=== PATIENT | female | born 1965 | race Asian ===

== ENCOUNTER 2020-01-04 21:59 | Emergency (ER) | payer MEDICAID, OTHER ==
[~2020-01-04] VITALS: Ht 162.6 cm; Wt 85.0 kg
[~2020-01-04 21:59] MED LIST: etomidate 2mg/ml inj. ONE; rocuronium 10mg/ml inj IV ONE
--- NOTE | 2020-01-04 22:03 | NUR ---
Triage completed at 2203 late entry
[2020-01-04] MEDS ORDERED: normal saline 1000ML IV soln IVB ONE (22:15)
[2020-01-04] MEDS ORDERED: propofol 1000mg/100ml bottle 100 ML IV PRN (22:21)
[2020-01-04] MEDS ORDERED: propofol 10mg/ml 20ml vial IV ONE (22:25)
[2020-01-04 22:31] LABS: BASOPHILS # (AUTO) 0.1 X10'3 (0-0.2); BASOPHILS % (AUTO) 0.3 % (0-1); EOSINOPHILS # (AUTO) 0.1 X10'3 (0-0.9); EOSINOPHILS % (AUTO) 0.8 % (0-6); HEMATOCRIT 45.7 % (35.0-45.0); HEMOGLOBIN 14.9 g/dl (12.0-16.0); LYMPHOCYTES # (AUTO) 4.7 X10'3 (1.1-4.8); MEAN CORPUSCULAR HEMOGLOBIN 26.6 PG (27.0-31.0); MEAN CORPUSCULAR HGB CONC 32.6 g/dL (33.0-36.5); MEAN CORPUSCULAR VOLUME 81.5 FL (78-98); MEAN PLATELET VOLUME 9.5 FL (7.4-10.4); MONOCYTES # (AUTO) 0.6 X10'3 (0-0.9); MONOCYTES % (AUTO) 3.6 % (2-12); NEUTROPHILS # (AUTO) 11.3 X10'3 (1.8-7.7); NEUTROPHILS % (AUTO) 67.3 % (42-75); PLATELET COUNT 198 X10'3 (140-440); RED BLOOD COUNT 5.61 X10'6 (4.20-5.60); RED CELL DISTRIBUTION WIDTH 14.8 % (11.5-14.5); WHITE BLOOD COUNT 16.8 X10'3 (4.5-11.0)
[2020-01-04] MEDS ORDERED: piperacillin/tazo 3.375gm/50ml 50 ML IV ONE (22:40)
[2020-01-04 22:45] LABS: PARTIAL THROMBOPLASTIN TIME 25 SECONDS (22-32)
[2020-01-04 22:46] LABS: ALANINE AMINOTRANSFERASE 41 U/L (12-78); ALBUMIN 4.3 G/DL (3.4-5.0); ALKALINE PHOSPHATASE 88 IU/L (46-116); ANION GAP 11 (8-16); ASPARTATE AMINO TRANSFERASE 47 U/L (10-37); BILIRUBIN,TOTAL 0.3 MG/DL (0.1-1.0); BLOOD UREA NITROGEN 20 MG/DL (7-18); BUN/CREATININE RATIO 20.4 (6.6-38.0); CALCIUM 8.6 MG/DL (8.5-10.1); CHLORIDE 104 MMOL/L (99-107); CREATININE 0.98 MG/DL (0.40-0.90); ETHANOL < 0.010 GM/DL (0.0-0.010); GLUCOSE 135 MG/DL (70-104); SODIUM 144 MMOL/L (135-145); TOTAL CARBON DIOXIDE 28.8 MMOL/L (24-32); TOTAL PROTEIN 8.7 G/DL (6.4-8.2); TROPONIN I < 0.04 NG/ML (0.0-0.05); eGFR 59 ML/MIN
[2020-01-04 22:49] LABS: POTASSIUM 2.8 MMOL/L (3.5-5.1)
--- NOTE | 2020-01-04 22:49 | NUR ---
Critical K+ 2.8. Dr Vera aware.
[2020-01-04] MEDS ORDERED: potassium Cl 10 mEq/100mL bag IV SCH (22:50)
[2020-01-04] MEDS ORDERED: niCARDipine-NS 40mg/200ml IVPB 200 ML IV SCH (23:00)
[2020-01-04 23:25] LABS: ABG BASE EXCESS 0.2 mmol/L (-2.0-3.0); ABG HCO3 25.1 mmol/L (22.0-26.0); ABG OXYGEN SATURATION 99.5 % (95-98); ABG PH (T) 7.403 (7.350-7.450); ABG PO2 (T) 347.5 mmHg (83-108); ALLEN'S TEST POSITIVE; FCOHb 0.7 % (0.5-1.5); FMetHb 0.3 % (0.3-1.12); FO2Hb 98.5 % (94-100); PATIENT TEMPERATURE 36.8; PEEP 5 cm H2O; RESPIRATORY RATE 18 b/min; TIDAL VOLUME 400 mL
[2020-01-04 23:26] LABS: CLARITY,URINE CLEAR (Clear); COLOR,URINE YELLOW (Yellow); GLUCOSE, URINE NEGATIVE (Neg); KETONES,URINE NEGATIVE (Neg); LEUKOCYTE ESTERASE ,URINE NEGATIVE (Neg); NITRITES, URINE NEGATIVE (Neg); OCCULT BLOOD,URINE TRACE-INTACT (Neg); PH,URINE 7.5 (4.8-8.0); PROTEIN,URINE 100 mg/dl (Neg); UROBILINOGEN,URINE 0.2 E.U/dL (0.2-1.0)
[2020-01-04 23:30] LABS: URINE AMPHETAMINE SCREEN NEGATIVE (Neg); URINE BARBITUATE SCREEN NEGATIVE (Neg); URINE BENZODIAZEPINES SCREEN NEGATIVE (Neg); URINE CANNABINOID SCREEN NEGATIVE (Neg); URINE COCAINE SCREEN NEGATIVE (Neg); URINE METHADONE SCREEN NEGATIVE (Neg); URINE OPIATE SCREEN NEGATIVE (Neg); URINE PHENCYCLIDINE SCREEN NEGATIVE (Neg)
[2020-01-04 23:32] LABS: UA COLLECTION TYPE FOLEY CATH
[2020-01-04 23:34] LABS: BACTERIA,URINE NONE SEEN /HPF (Neg); RBC,URINE 0-2 /HPF (0-2); SQUAMOUS EPITHELIAL CELL,UR NONE SEEN /LPF (FEW); WBC,URINE 0-4 /HPF (0-4)
[2020-01-04 23:41] VITALS: BP 240/110
[2020-01-04] MEDS ORDERED: NO HOME MEDS (23:50)
--- NOTE | 2020-01-04 23:52 | NUR ---
all jewelry was given to the , and her socks, clothing was cut and removed and discarded.
== END 2020-01-04 23:51 | disposition short-term general hospital (02) ==
LOC: ER 22:00 → EDSEX 22:00 → ER 23:51
DX: S06.381A Contusion, laceration, and hemorrhage of brainstem with loss of consciousness of 30 minutes or less, initial encounter (principal); X58.XXXA Exposure to other specified factors, initial encounter; Y93.89 Activity, other specified; Y92.89 Other specified places as the place of occurrence of the external cause; Y99.8 Other external cause status
CPT/HCPCS: 31500; 36415; 36600; 70450; 71045; 72125; 80053; 80305; 80320; 81001; 82803; 83605; 84145; 84484; 85018; 85025; 85610; 85730; 87040; 93005; 94760; 96365; 96375; 99291; J2543; J2704; J3480; J7030